=== PATIENT | male | born 1995 | race Hispanic/Latino ===

== ENCOUNTER 2022-05-02 17:31 | Observation (INO) | payer SELFPAY ==
[2022-05-02 17:39] VITALS: BP 144/100
[2022-05-02 18:20] LABS: HEMOGLOBIN 15.7 g/dl (14.0-18.0); LYMPH% 22.6 % (15-41); MEAN CELL VOLUME 81.2 fL CALC (80.0-100.0); MEAN CORPUSCULAR HGB 28.3 pG CALC (26.0-32.0); MEAN CORPUSCULAR HGB CONC 34.9 g/dL CAL (32.0-36.0); NEUT# 2.59 thou/uL (1.82-7.42); NEUT% 66.4 % (42-76); RED BLOOD COUNT 5.54 mill/uL (4.70-6.10); RED CELL DISTRI WIDTH 12.6 % (11.5-15.5)
[2022-05-02 18:32] LABS: ALBUMIN 4.8 g/dL (3.2-5.0); ALKALINE PHOSPHATASE 128 u/l (38-126); ANION GAP 17 (6-22 (CALC)); BILIRUBIN, TOTAL 1.8 mg/dL (0.2-1.3); BUN 16 mg/dL (9-20); BUN/CREATININE RATIO 21 (12-20 (CALC)); CARBON DIOXIDE 27 mmol/l (22-30); CHLORIDE 91 mmol/l (95-108); CREATININE 0.7 mg/dL (0.7-1.3); GFR FOR AFR.AMER. > 60 ML/MIN (>=60 (CALC)); GFR OTHER RACES > 60 ML/MIN (>=60 (CALC)); POTASSIUM 3.3 mmol/l (3.5-5.1); SODIUM 131 mmol/l (137-146); TOTAL PROTEIN 8.2 g/dL (6.3-8.2)
[2022-05-02 19:29] LABS: ETHYL ALCOHOL 382 mg/dl (0-30); SGOT/AST 4870 u/l (17-59)
[2022-05-02 23:05] VITALS: BP 128/86
[2022-05-03 05:01] LABS: URINE BLOOD DIPSTICK NEGATIVE (NEGATIVE); URINE COLOR YELLOW; URINE GLUCOSE - DIPSTICK NEGATIVE (NEGATIVE); URINE KETONE NEGATIVE (NEGATIVE); URINE LEUK ESTERASE NEGATIVE (NEGATIVE); URINE PH 6.5 (4.5-8.0); URINE PROTEIN - DIPSTICK NEGATIVE (NEG-TRACE)
[2022-05-03 05:07] LABS: URINE BILIRUBIN - DIPSTICK SMALL (NEGATIVE)
[2022-05-03 05:08] LABS: URINE NITRITE - DIPSTICK NEGATIVE (Negative)
[2022-05-03 05:21] VITALS: BP 150/94
[2022-05-03 05:22] LABS: ALBUMIN 4.5 g/dL (3.2-5.0); ALKALINE PHOSPHATASE 136 u/l (38-126); ANION GAP 15 (6-22 (CALC)); BILIRUBIN, TOTAL 1.8 mg/dL (0.2-1.3); BUN 11 mg/dL (9-20); BUN/CREATININE RATIO 15 (12-20 (CALC)); CARBON DIOXIDE 25 mmol/l (22-30); CHLORIDE 93 mmol/l (95-108); CREATININE 0.8 mg/dL (0.7-1.3); GFR FOR AFR.AMER. > 60 ML/MIN (>=60 (CALC)); GFR OTHER RACES > 60 ML/MIN (>=60 (CALC)); POTASSIUM 3.3 mmol/l (3.5-5.1); SODIUM 130 mmol/l (137-146); TOTAL PROTEIN 7.6 g/dL (6.3-8.2)
[2022-05-03 05:40] LABS: SGOT/AST 3335 u/l (17-59)
[2022-05-03 06:46] VITALS: BP 155/94
[2022-05-03] MEDS ORDERED: LIBRIUM10 MG PO (08:51)
[2022-05-03 21:33] VITALS: BP 117/63
[2022-05-03 22:00] VITALS: BP 108/64
[2022-05-03 22:30] VITALS: BP 99/62
[2022-05-03 23:00] VITALS: BP 107/54
[2022-05-04] VITALS (7 sets, daily range): BP systolic 102–115; BP diastolic 52–96
== END 2022-05-03 10:11 | disposition home or self-care (01) | DRG 897 ==
LOC: ED 17:31 → EDBD 17:31 → ED 18:46 → ED-I 05-03 03:40 → ED 05-03 04:52 → MS2 05-03 04:53
PROVIDERS: Emergency Medicine; Nurse Practitioner; ADMIT Internal Medicine; ATTEND Internal Medicine
DX: F10.229 Alcohol dependence with intoxication, unspecified (principal); K70.10 Alcoholic hepatitis without ascites; Y90.8 Blood alcohol level of 240 mg/100 ml or more; Z20.822 Contact with and (suspected) exposure to COVID-19
CPT/HCPCS: G0378; Q9967